=== PATIENT | female | born 1985 | race Caucasian/White ===

== ENCOUNTER 2016-08-15 19:19 | Outpatient (CLI) | payer MEDICAID ==
[~2016-08-15] VITALS: Ht 152.4 cm; Wt 83.5 kg
[2016-08-15 19:26] VITALS: Ht 152.4 cm; Wt 83.5 kg
[2016-08-15] MEDS ORDERED: ONDANSETRON 4 MG INJ IV STA (20:45)
[2016-08-15 21:00] LABS: BASOPHIL # 0.1 10^3/ul (0.0-0.1); BASOPHILS % 0.4 % (0.0-2.0); EOSINOPHILS # 0.2 10^3/ul (0.0-0.5); LYMPHOCYTES # 2.6 10^3/ul (0.8-2.9); LYMPHOCYTES % 17.7 % (15.0-51.0); MEAN CORPUSCULAR HEMOGLOBIN 30.6 pg (29.0-33.0); MEAN CORPUSCULAR HGB CONC 34.1 g/dl (32.0-37.0); MEAN CORPUSCULAR VOLUME 89.9 fl (82.0-101.0); MEAN PLATELET VOLUME 7.9 fl (7.4-10.4); MONOCYTE # 0.7 10^3/ul (0.3-0.9); NEUTROPHIL # 10.9 10^3/ul (1.6-7.5); NEUTROPHILS % 75.9 % (39.0-77.0); PLATELET COUNT 234 10^3/UL (140-440); RED BLOOD COUNT 4.23 10^6/ul (4.20-5.40); RED CELL DISTRIBUTION WIDTH 13.8 % (11.5-14.5); UNCORRECTED WBC 14.4 10^3/ul (4.8-10.8); WHITE BLOOD COUNT 14.4 10^3/ul (4.8-10.8)
[2016-08-15 21:00] LABS: ADD UMIC YES; URINE BILIRUBIN (Dip) 1+ (NEGATIVE); URINE BLOOD (Dip) NEGATIVE (NEGATIVE); URINE COLOR YELLOW (YELLOW); URINE GLUCOSE (Dip) NEGATIVE (NEGATIVE); URINE KETONES (Dip) 40 (NEGATIVE); URINE LEUKOCYTE ESTERASE (Dip) 1+ (NEGATIVE); URINE NITRITE (Dip) NEGATIVE (NEGATIVE); URINE TOTAL PROTEIN (Dip) 1+ (NEGATIVE); URINE UROBILINOGEN (Dip) 1.0 E.U./dL (0.1-1.0)
[2016-08-15] MEDS ORDERED: NIFEdipine 10 MG CAP PO ONE (21:00)
[2016-08-15] MEDS ORDERED: LACTATED RINGER'S 1,000 ML IV* ONE (21:00)
[2016-08-15 21:12] VITALS: BP 103/69; PULSE 108; RESP 18
[2016-08-15 21:17] LABS: CONDITION 1
[2016-08-15 21:19] LABS: ALBUMIN 3.8 g/dl (3.3-4.9); POTASSIUM 3.7 mmol/L (3.5-5.1)
[2016-08-15 21:20] LABS: ALBUMIN/GLOBULIN RATIO 1.02
[2016-08-15 21:23] LABS: BILIRUBIN,INDIRECT 0.2 mg/dl (0-1.1); BILIRUBIN,TOTAL 0.2 mg/dl (0.2-1.3); CREATININE 0.52 mg/dl (0.44-1.00); TOTAL PROTEIN 7.5 g/dl (6.1-8.1)
[2016-08-15] MEDS: LACTATED RINGER'S 1,000 ML IV SCH (21:45)
[2016-08-15 21:52] LABS: ICTOTEST NEGATIVE (NEGATIVE)
[2016-08-15 21:53] LABS: BACTERIA,URINE FEW; MUCUS,URINE MANY; SQUAMOUS EPITHELIAL CELL,UR MANY; URINE RBCS NONE SEEN /HPF (0)
--- NOTE | 2016-08-15 22:18 | RADRPT ---
PROCEDURE: US OB. CLINICAL INDICATION: labor TECHNIQUE: Pelvic ultrasound performed for biophysical profile. COMPARISON: None available FINDINGS: Single intrauterine gestation present with heart rate at 152 beats per minute. Presentation is ceph alic. Placenta is posterior, grade I. Biophysical profile score is 8/8 (breathing=2, movement=2, t one =2, fluid volume=2). Amniotic fluid volume is within normal limits, with AMBREEN = 13.5 cm. RPTAT:HJJR IMPRESSION: Biophysical profile score 8/8. Physician Fidencio Date Time Electronically viewed and signed by Physician Fidencio on 08/15/2016 22:17 JR/
--- NOTE | 2016-08-16 01:00 | QN ---
Documentation Comment Laborist Dr Oneil's pt 30 y.o. A1 with an IUP at 32 weeks 4 days c/o vomiting exacerbation of which she has had many in this . Denies feeling any UC's. No VB or leaking. PMHx: Stage 1 ovarian CA? PSHx: some. All: PCN. Silicone. NST 130-140 bpm with accels to 175BPM. No decels. UC's seen at first q2-5 minutes. Now q 10. AMBREEN 13.5. BPP 8/8. U/A: all negative except +bilirubin ad 1+ leukocytes. A: IUP at 32 w 4d Hyperemesis. P: s/p Procardia 20 mg x 1. Zofran . If UC's itzel may they sent some of the people back. TESSIE SILVA MD Aug 16, 2016 01:00
[2016-08-16] MEDS ORDERED: ONDANSETRON 4 MG INJ IV ONE (03:00)
[2016-08-16] MEDS: LACTATED RINGER'S 1,000 ML IV SCH (03:18)
[2016-08-16] MEDS ORDERED: CITRIC ACID/NA CITRATE 30 ML CUP PO ONE (03:30)
[2016-08-16] MEDS ORDERED: METO10TA92 PO (05:12)
[2016-08-16] MEDS ORDERED: ONDA4SOL2 PO (05:12)
--- NOTE | 2016-08-16 05:55 | TRIAGE ---
OB Triage Datetime Report Generated by CPN: 08/16/2016 05:55 Datetime: 08/16/2016 05:20 Stage of : OB Triage Labor Evaluation Frequency: OCCASS Monitor Mode: External Duration (sec)2399: 40-50 Quality: Mild Pattern: Normal: <= 5 Contractions in 10 Minutes Resting Tone [place]: Relaxed Heart Rate FHR Baseline Rate: 135 Monitor Mode: External US Variability: Moderate 6-25 bpm Accelerations: 15X15 Decelerations: None Category: Category I Datetime: 08/16/2016 05:00 Stage of : OB Triage Labor Evaluation Frequency: OCCASS Monitor Mode: External Duration (sec)2399: 40-50 Quality: Mild Pattern: Normal: <= 5 Contractions in 10 Minutes Resting Tone [place]: Relaxed Heart Rate FHR Baseline Rate: 135 Monitor Mode: External US Variability: Moderate 6-25 bpm Accelerations: 15X15 Decelerations: None (Annotations: PT. KEEP SITTING UP, HARD TO MONITOR, OBESE PT.) Category: Category I Datetime: 08/16/2016 04:00 Stage of : OB Triage Labor Evaluation Frequency: [place]CCASS Monitor Mode: External Duration (sec)2399: 40-50 Quality: Mild Pattern: Normal: <= 5 Contractions in 10 Minutes Resting Tone [place]: Relaxed Heart Rate FHR Baseline Rate: 135 Monitor Mode: External US Variability: Moderate 6-25 bpm Accelerations: 15X15 Decelerations: Variable Category: Category II Datetime: 08/16/2016 03:00 Stage of : OB Triage Labor Evaluation Frequency: IRREG Monitor Mode: External Duration (sec)2399: 40-50 Quality: Mild Pattern: Normal: <= 5 Contractions in 10 Minutes Resting Tone [place]: Relaxed Heart Rate FHR Baseline Rate: 130 Monitor Mode: External US Variability: Moderate 6-25 bpm Accelerations: 15X15 Decelerations: None Category: Category I Datetime: 08/16/2016 02:00 Stage of : OB Triage Labor Evaluation Frequency: [place]CCASS Monitor Mode: External Duration (sec)2399: 40-50 Quality: Mild Pattern: Normal: <= 5 Contractions in 10 Minutes Resting Tone [place]: Relaxed Heart Rate FHR Baseline Rate: 135 Monitor Mode: External US Variability: Moderate 6-25 bpm Accelerations: 15X15 Decelerations: Variable Category: Category II Pain Presence: None/Denies Datetime: 08/16/2016 01:00 Stage of : OB Triage Labor Evaluation Frequency: [place]CC[place] Monitor Mode: External Duration (sec)2399: 40-50 Quality: Mild Pattern: Normal: <= 5 Contractions in 10 Minutes Resting Tone [place]: Relaxed Heart Rate FHR Baseline Rate: 140 Monitor Mode: External US Variability: Moderate 6-25 bpm Accelerations: 15X15 Decelerations: Variable Category: Category II Pain Presence: None/Denies Datetime: 08/16/2016 00:42 Vaginal Exam Dilatation (cms): 0.0 Effacement (%): 0 Station: -3 Exam By: ASHLEY Cervix, Consistency: Firm Cervix, Position: Posterior Datetime: 08/16/2016 00:00 Stage of : OB Triage Labor Evaluation Frequency: IRREG Monitor Mode: External Duration (sec)2399: 40-50 Quality: Mild Pattern: Normal: <= 5 Contractions in 10 Minutes Resting Tone [place]: Relaxed Heart Rate FHR Baseline Rate: 135 Monitor Mode: External US Variability: Moderate 6-25 bpm Accelerations: 15X15 Decelerations: None Category: Category I Pain Presence: None/Denies Datetime: 08/15/2016 23:00 Stage of : OB Triage Labor Evaluation Frequency: OCCASS Monitor Mode: External Duration (sec)2399: 40-50 Quality: Mild Pattern: Normal: <= 5 Contractions in 10 Minutes Resting Tone [place]: Relaxed Heart Rate FHR Baseline Rate: 140 Monitor Mode: External US Variability: Moderate 6-25 bpm Accelerations: 15X15 Decelerations: None Category: Category I Pain Presence: None/Denies Datetime: 08/15/2016 22:00 Stage of : OB Triage Labor Evaluation Frequency: OCCASS Monitor Mode: External Duration (sec)2399: 40-50 Quality: Mild Pattern: Normal: <= 5 Contractions in 10 Minutes Resting Tone [place]: Relaxed Heart Rate FHR Baseline Rate: 140 Monitor Mode: External US Variability: Moderate 6-25 bpm Accelerations: 15X15 Decelerations: None Category: Category I Pain Presence: None/Denies Datetime: 08/15/2016 21:06 Stage of : OB Triage Pain Assessment Pain Scale: 0 Pain Presence: None/Denies Pain Type: N/A Pain Assessment Comments: PT DENIES FEELING CONTRACTIONS AT THIS TIME Datetime: 08/15/2016 21:00 Stage of : OB Triage Labor Evaluation Frequency: 1-8 Monitor Mode: External Duration (sec)2399: 40-50 Quality: Mild Pattern: Normal: <= 5 Contractions in 10 Minutes Resting Tone [place]: Relaxed Heart Rate FHR Baseline Rate: 140 Monitor Mode: External US Variability: Moderate 6-25 bpm Accelerations: 15X15 Decelerations: Variable Category: Category II Pain Presence: None/Denies Datetime: 08/15/2016 20:40 Nausea/Vomiting: Present (Annotations: PT VOMITTED, 400ML EMESIS COLLECTED) Datetime: 08/15/2016 20:00 Stage of : OB Triage Temperature Route: Oral Labor Evaluation Frequency: 1-2.5 Monitor Mode: External Duration (sec)2399: 40-50 Quality: Mild Pattern: Normal: <= 5 Contractions in 10 Minutes Resting Tone [place]: Relaxed Heart Rate FHR Baseline Rate: 140 Monitor Mode: External US Variability: Moderate 6-25 bpm Accelerations: 15X15 Decelerations: Variable Category: Category II Pain Presence: None/Denies Datetime: 08/15/2016 19:37 Assessment Type: Triage Maternal Assessment Level of Consciousness: Fully Conscious DTR's/Clonus: DTRs 2+; No Clonus Headache: Denies Blurred Vision: No Respiratory Effort: Unlabored; Regular Rhythm; Equal Expansion Breath Sounds, Left: Clear and Equal Breath Sounds, Right: Clear and Equal Nausea/Vomiting: Denies RUQ Epigastric Pain: Denies Lower Extremities Edema: None Upper Extremities Edema: None Facial Edema: None Fall Risk Assessment History of Falling: (0) No Secondary Diagnosis: (0) No Ambulatory Aid: (0) Bedrest/Nurse Assist IV Therapy: (0) No Gait: (0) Normal/Bedrest/Immobile Mental Status: (0) Oriented to Own Ability Fall Score: 0 Fall Risk Score Definition: No Risk: No action required Datetime: 08/15/2016 19:34 Time of Arrival: 08/15/2016 19:13 EGA: 32.3 Arrived By: Ambulatory Arrived From: Home Chief Complaint: VOMITTING WHOLE DAY TODAY LAST TIME AT 1845 Movement: Present Contractions: Denies/Absent Rupture of Membranes: Denies Vaginal Bleeding: None Vaginal Discharge: Denies Recent Sexual Intercouse: Denies Abdominal Trauma: Not Applicable Patient Complaints: None Additional Patient Complaints: HYPEREMESIS GRAVIDARUM, ON ZOFRAN AND REGLAN PO AT HOME Time Provider Notified: 08/15/2016 20:29 Provider Notified: SHIRA Initial Plan: EFM, ASSESSMENT, CALL MD FOR ORDERS
== END 2016-08-16 05:33 | disposition home or self-care (01) ==
LOC: OBT 19:19 → L-D 19:20 → OBT 08-16 05:33
PROVIDERS: ATTEND Obstetrics & Gynecology
DX: O21.0 Mild hyperemesis gravidarum (principal); Z3A.32 32 weeks gestation of pregnancy
CPT/HCPCS: 36415; 76818; 80053; 81001; 82150; 83690; 85025; 96360; 96361; 96375; J2405; J7120; Z7500; Z7610; 81003; G0463